=== PATIENT | male | born 1985 | race Asian ===

== ENCOUNTER 2021-07-28 05:35 | Emergency (ER) | payer OTHER ==
[~2021-07-28] VITALS: Ht 175.3 cm; Wt 83.9 kg
[2021-07-28 06:38] VITALS: BP 159/78; TEMP 98.9
== END 2021-07-28 06:38 | disposition home or self-care (01) ==
LOC: ED 05:35
DX: S33.5XXA Sprain of ligaments of lumbar spine, initial encounter (principal); X58.XXXA Exposure to other specified factors, initial encounter; Y92.89 Other specified places as the place of occurrence of the external cause
CPT/HCPCS: 99282